=== PATIENT | female | born 1970 | race Caucasian/White ===

== ENCOUNTER → 2025-08-14 | Outpatient (CLI) | payer MEDICAID, SELFPAY ==
--- NOTE | 2025-08-14 15:11 | XR_ITS ---
Examination: Temporomandibular joints 3 views TECHNIQUE: Down lateral is mild temporomandibular joints 3 views Date and time: August 14, 2025, 1519 hours INDICATIONS: Jaw pain this week. FINDINGS: Mandibular condyles appear intact There is adequate anterior translation of both mandibular condyles in the open-mouth position IMPRESSION: No fracture If joint clicking is a clinical consideration, suggest MRI temporomandibular joints follow-up
== END | disposition home or self-care (01) ==
LOC: CDIM 14:58
PROVIDERS: PCP Family Medicine; Referring Provider Nurse Practitioner Family; Visit Provider Nurse Practitioner Family
DX: M26.621 Arthralgia of right temporomandibular joint (principal)
CPT/HCPCS: 70328